=== PATIENT | male | born 1940 | race Asian ===

== ENCOUNTER 2019-08-21 04:20 | Emergency (ER) | payer MEDICARE ==
[~2019-08-21 04:20] MED LIST: AEC81 PO; DIPH1TAB PO; INSREG SQ; INSU100V12 SQ; LEVO250T59 PO; LOSA1TAB42 PO; MIRT15TA6 PO; OXYB10TA4 PO; TAMS0.4C32 PO; TERA5CAP4 PO; ZOLP5TAB8 PO
== END 2019-08-21 05:09 | disposition home or self-care (01) ==
LOC: EDH 04:20
DX: R33.9 Retention of urine, unspecified (principal); I10 Essential (primary) hypertension; E11.9 Type 2 diabetes mellitus without complications; Z87.891 Personal history of nicotine dependence
CPT/HCPCS: 51702

== ENCOUNTER 2019-09-11 09:14 | Emergency (ER) | payer MEDICARE ==
[2019-09-11 09:59] LABS: APPEARANCE,URINE Cloudy (CLEAR); BILIRUBIN,URINE Negative (NEGATIVE); COLOR,URINE Yellow (YELLOW); GLUCOSE, URINE (UA) TRACE mg/dL (NEGATIVE); KETONES,URINE Negative (NEGATIVE); LEUKOCYTE ESTERASE ,URINE Large (NEGATIVE); NITRATE,URINE Positive (NEGATIVE); OCCULT BLOOD,URINE Small (NEGATIVE); PROTEIN,URINE Trace mg/dL (NEGATIVE); UROBILINOGEN,URINE 0.2 mg/dL (0.2-1.0)
[2019-09-11 10:11] LABS: BACTERIA,URINE Few /HPF (None Seen); RBC,URINE 0-1 /HPF (0-1); SQUAMOUS EPITHELIAL CELL,UR 0-2 /HPF (0-2); WBC,URINE >100 /HPF (0-1)
[2019-09-11] MEDS ORDERED: LIDOCAINE HCL-MPF 1% 2ML VIAL ONE (10:11)
[2019-09-11] MEDS ORDERED: CEFTRIAXONE SODIUM 1 GM ONE (10:12)
== END 2019-09-11 10:59 | disposition home or self-care (01) ==
LOC: EDH 09:14
DX: N39.0 Urinary tract infection, site not specified (principal); R33.9 Retention of urine, unspecified; E11.9 Type 2 diabetes mellitus without complications; I10 Essential (primary) hypertension; Z87.891 Personal history of nicotine dependence
CPT/HCPCS: 51702; 81001; 87088; 96372; 99284; J0696; J3490; 87077; 87186

== ENCOUNTER 2019-12-03 08:32 | Emergency (ER) | payer MEDICARE | END 2019-12-03 10:45 | disposition left against medical advice (07) | LOC: EDH 08:32 | DX: R06.00 Dyspnea, unspecified (principal); I10 Essential (primary) hypertension | CPT/HCPCS: 99281 ==

== ENCOUNTER 2020-11-26 20:11 | Inpatient (IN) | payer MEDICARE ==
[~2020-11-26] VITALS: Ht 162.6 cm; Wt 48.0 kg
[~2020-11-26 20:11] MED LIST changes: -AEC81 PO; -DIPH1TAB PO; -LEVO250T59 PO; -LOSA1TAB42 PO; +MEGE400O5 PO; -MIRT15TA6 PO; -OXYB10TA4 PO; +TAMS-1 PO; -TAMS0.4C32 PO; -TERA5CAP4 PO; -ZOLP5TAB8 PO
[2020-11-26 20:58] LABS: APPEARANCE,URINE Clear (CLEAR); BILIRUBIN,URINE Negative (NEGATIVE); COLOR,URINE Yellow (YELLOW); GLUCOSE, URINE (UA) >=1000 mg/dL (NEGATIVE); KETONES,URINE Negative (NEGATIVE); LEUKOCYTE ESTERASE ,URINE Negative (NEGATIVE); NITRATE,URINE Negative (NEGATIVE); OCCULT BLOOD,URINE Small (NEGATIVE); PROTEIN,URINE POS 1+ mg/dL (NEGATIVE)
[2020-11-26 21:10] LABS: BACTERIA,URINE Rare /HPF (None Seen); RBC,URINE 0-1 /HPF (0-1); SQUAMOUS EPITHELIAL CELL,UR Rare /HPF (0-2)
[2020-11-26 21:15] LABS: BASOPHILS % (AUTO) 0.2 % (0.0-5.0); EOSINOPHILS % (AUTO) 0.3 % (0.0-8.0); HEMATOCRIT 26.8 % (42-54); LYMPHOCYTES % (AUTO) 14.5 % (21.0-51.0); MEAN CORPUSCULAR HEMOGLOBIN 30.7 pg (27.0-33.0); MEAN CORPUSCULAR HGB CONC 34.3 g/dL (32.0-36.0); MEAN CORPUSCULAR VOLUME 89.3 fL (79-99); MONOCYTES % (AUTO) 10.9 % (3.0-13.0); NEUTROPHILS % (AUTO) 73.4 % (40.0-77.0); PLATELET COUNT (AUTO) 177 K/uL (130-400); RED CELL DISTRIBUTION WIDTH 14.5 % (11.0-15.5); WHITE BLOOD COUNT (AUTO) 10.4 K/uL (4.8-10.8)
[2020-11-26] MEDS ORDERED: ACETAMINOPHEN 325 MG TAB ONE (21:15)
[2020-11-26 21:30] LABS: CREATININE 1.8 mg/dL (0.5-1.5); POTASSIUM 4.3 mmol/L (3.5-5.1)
[2020-11-26 21:34] LABS: ALBUMIN 3.1 g/dL (3.5-5.0); BILIRUBIN,TOTAL 0.7 mg/dL (0.2-1.0); TOTAL PROTEIN, SERUM 8.8 g/dL (6.0-8.3)
[2020-11-26] MEDS ORDERED: 0.9%NACL 50ML 50 ML IV ONE (22:15)
[2020-11-26] MEDS ORDERED: CEFTRIAXONE 1G VIAL ONE (22:15)
[2020-11-26] MEDS ORDERED: INSULIN HUMULIN R 100 UNIT/ML 3ML ONE (22:41)
[2020-11-26] MEDS ORDERED: GUAIFENESIN-DM 200/20 MG 10 ML PO PRN (23:30)
[2020-11-26] MEDS ORDERED: ACETAMINOPHEN 325 MG TAB PO PRN ×2 (23:30)
[2020-11-26] MEDS ORDERED: MAG/ALUM/SIMETH 30 ML UDCUP PO PRN (23:30)
[2020-11-26] MEDS ORDERED: MORPHINE 2 MG SYG IV PRN (23:30)
[2020-11-26] MEDS ORDERED: ONDANSETRON 4MG INJ IV PRN (23:30)
[2020-11-26] MEDS: CEFTRIAXONE 1G VIAL IV SCH (23:30)
[2020-11-26] MEDS: AZITHROMYCIN 500MG+NS 250ML 250 ML IV SCH (23:30)
[2020-11-26] MEDS ORDERED: 0.9%NACL 1000ML 1,000 ML IV SCH (23:45)
[2020-11-27] MEDS ORDERED: AZITHROMYCIN 500MG+NS 250ML 250 ML IV ONE (00:14)
[2020-11-27 06:12] LABS: BASOPHILS % (AUTO) 0.2 % (0.0-5.0); EOSINOPHILS % (AUTO) 0.5 % (0.0-8.0); HEMATOCRIT 26.3 % (42-54); LYMPHOCYTES % (AUTO) 4.2 % (21.0-51.0); MEAN CORPUSCULAR HGB CONC 33.8 g/dL (32.0-36.0); MEAN CORPUSCULAR VOLUME 88.6 fL (79-99); NEUTROPHILS % (AUTO) 84.4 % (40.0-77.0); PLATELET COUNT (AUTO) 177 K/uL (130-400); RED BLOOD CELL COUNT(AUTO) 2.97 MIL/uL (4.50-6.20); RED CELL DISTRIBUTION WIDTH 14.3 % (11.0-15.5); WHITE BLOOD COUNT (AUTO) 10.5 K/uL (4.8-10.8)
[2020-11-27 06:34] LABS: ALBUMIN 2.7 g/dL (3.5-5.0); BILIRUBIN,TOTAL 0.5 mg/dL (0.2-1.0); CREATININE 1.4 mg/dL (0.5-1.5); POTASSIUM 3.4 mmol/L (3.5-5.1); TOTAL PROTEIN, SERUM 7.9 g/dL (6.0-8.3)
[2020-11-27 06:46] LABS: CRP QUANTITATIVE 163.2 mg/L (0.00-9.0)
[2020-11-27 07:09] LABS: HEMOGLOBIN A1C 11.2 % (4.0-6.0)
[2020-11-27] MEDS ORDERED: FAMOTIDINE 20MG TAB ONE (08:50)
[2020-11-27] MEDS ORDERED: METOPROLOL TARTRATE 25 MG TAB ONE (08:51)
[2020-11-27] MEDS ORDERED: ENOXAPARIN SODIUM 40 MG/0.4 ML SYRINGE SQ ONE (08:51)
[2020-11-27] MEDS: METOPROLOL TARTRATE 25 MG TAB PO SCH ×2 (09:00→20:36)
[2020-11-27] MEDS: ENOXAPARIN SODIUM 40 MG/0.4 ML SYRINGE SQ SCH (09:00)
[2020-11-27] MEDS: FAMOTIDINE 20MG TAB PO SCH (09:00)
[2020-11-27] MEDS: CREON 12000 UNIT PO SCH ×3 (09:00→20:42)
[2020-11-27] MEDS ORDERED: POTASSIUM CHLORIDE 10% ELIXIR 20 MEQ/15 ML UDCUP PO SCH (09:00)
[2020-11-27] MEDS ORDERED: POTASSIUM CHLORIDE 10% ELIXIR 20 MEQ/15 ML UDCUP ONE (09:33)
[2020-11-27] MEDS ORDERED: MAGNESIUM 2GM PREMIX 50ML 50 ML IV NR (10:45)
[2020-11-27] MEDS: INSULIN HUMULIN R 100 UNIT/ML 3ML SQ SCH ×3 (11:30→20:41)
[2020-11-27] MEDS ORDERED: MAGNESIUM 2GM PREMIX 50ML 50 ML IV ONE (12:16)
[2020-11-27 13:37] VITALS: BP 131/71
[2020-11-27] MEDS ORDERED: CREON12 PO (15:35)
[2020-11-27] MEDS ORDERED: INSU100V12 SQ (15:40)
[2020-11-27] MEDS ORDERED: ZOLP5TAB8 PO (15:40)
[2020-11-27] MEDS ORDERED: DONE5TAB33 PO (15:40)
[2020-11-27] MEDS ORDERED: METO25TA6 PO (15:40)
[2020-11-27] MEDS ORDERED: TERA5CAP4 PO (15:40)
[2020-11-27 16:48] VITALS: BP 122/63
[2020-11-27 20:01] VITALS: BP 119/62
[2020-11-27] MEDS: TERAZOSIN 5MG CAP PO SCH (20:35)
[2020-11-27] MEDS: DONEPEZIL HCL 5 MG TAB PO SCH (20:35)
[2020-11-27] MEDS: CEFTRIAXONE 1G VIAL IV SCH (23:09)
[2020-11-27] MEDS: AZITHROMYCIN 500MG+NS 250ML 250 ML IV SCH (23:09)
[2020-11-27] MEDS: ACETAMINOPHEN WITH CODEINE 1 TAB TAB PO PRN (23:19)
[2020-11-27 23:34] VITALS: BP 120/71
[2020-11-28 03:49] VITALS: BP 110/69
[2020-11-28 05:36] LABS: BASOPHILS % (AUTO) 0.3 % (0.0-5.0); EOSINOPHILS % (AUTO) 2.1 % (0.0-8.0); HEMATOCRIT 24.3 % (42-54); LYMPHOCYTES % (AUTO) 13.4 % (21.0-51.0); MEAN CORPUSCULAR HEMOGLOBIN 30.5 pg (27.0-33.0); MEAN CORPUSCULAR HGB CONC 34.2 g/dL (32.0-36.0); MEAN CORPUSCULAR VOLUME 89.3 fL (79-99); MONOCYTES % (AUTO) 10.2 % (3.0-13.0); NEUTROPHILS % (AUTO) 73.4 % (40.0-77.0); PLATELET COUNT (AUTO) 196 K/uL (130-400); RED BLOOD CELL COUNT(AUTO) 2.72 MIL/uL (4.50-6.20); RED CELL DISTRIBUTION WIDTH 14.6 % (11.0-15.5); WHITE BLOOD COUNT (AUTO) 8.6 K/uL (4.8-10.8)
[2020-11-28 05:55] LABS: ALBUMIN 2.4 g/dL (3.5-5.0); BILIRUBIN,TOTAL 0.3 mg/dL (0.2-1.0); CREATININE 1.4 mg/dL (0.5-1.5); CRP QUANTITATIVE 147.2 mg/L (0.00-9.0); MAGNESIUM 2.3 mg/dL (1.80-2.40); TOTAL PROTEIN, SERUM 7.5 g/dL (6.0-8.3)
[2020-11-28] MEDS: INSULIN HUMULIN R 100 UNIT/ML 3ML SQ SCH ×4 (06:03→20:16)
[2020-11-28 07:30] VITALS: BP 128/69
[2020-11-28] MEDS: CREON 12000 UNIT PO SCH ×3 (09:00→20:16)
[2020-11-28] MEDS: METOPROLOL TARTRATE 25 MG TAB PO SCH ×2 (09:06→20:15)
[2020-11-28] MEDS: FAMOTIDINE 20MG TAB PO SCH (09:07)
[2020-11-28] MEDS: ENOXAPARIN SODIUM 40 MG/0.4 ML SYRINGE SQ SCH (09:08)
[2020-11-28 11:00] VITALS: BP 119/66
[2020-11-28] MEDS: ACETAMINOPHEN WITH CODEINE 1 TAB TAB PO PRN (15:32)
[2020-11-28 16:00] VITALS: BP 126/63
[2020-11-28 19:00] VITALS: BP 130/66
[2020-11-28] MEDS: TERAZOSIN 5MG CAP PO SCH (20:15)
[2020-11-28] MEDS: DONEPEZIL HCL 5 MG TAB PO SCH (20:15)
[2020-11-28] MEDS: AZITHROMYCIN 500MG+NS 250ML 250 ML IV SCH (21:58)
[2020-11-28] MEDS: CEFTRIAXONE 1G VIAL IV SCH (21:58)
[2020-11-28] MEDS ORDERED: HYDROXYZINE 25 MG TABLET PO SCH (22:45)
[2020-11-29] VITALS: BP 150/69
[2020-11-29 04:00] VITALS: BP 123/66
[2020-11-29 05:51] LABS: BASOPHILS % (AUTO) 0.8 % (0.0-5.0); EOSINOPHILS % (AUTO) 3.2 % (0.0-8.0); HEMATOCRIT 25.6 % (42-54); LYMPHOCYTES % (AUTO) 19.3 % (21.0-51.0); MEAN CORPUSCULAR HEMOGLOBIN 29.3 pg (27.0-33.0); MEAN CORPUSCULAR HGB CONC 32.8 g/dL (32.0-36.0); MEAN CORPUSCULAR VOLUME 89.2 fL (79-99); MONOCYTES % (AUTO) 10.6 % (3.0-13.0); NEUTROPHILS % (AUTO) 65.5 % (40.0-77.0); PLATELET COUNT (AUTO) 213 K/uL (130-400); RED BLOOD CELL COUNT(AUTO) 2.87 MIL/uL (4.50-6.20); RED CELL DISTRIBUTION WIDTH 14.4 % (11.0-15.5); WHITE BLOOD COUNT (AUTO) 6.5 K/uL (4.8-10.8)
[2020-11-29 06:12] LABS: ALBUMIN 2.4 g/dL (3.5-5.0); BILIRUBIN,TOTAL 0.3 mg/dL (0.2-1.0); CREATININE 1.5 mg/dL (0.5-1.5); TOTAL PROTEIN, SERUM 7.4 g/dL (6.0-8.3)
[2020-11-29] MEDS: INSULIN HUMULIN R 100 UNIT/ML 3ML SQ SCH (06:14)
[2020-11-29] MEDS: FAMOTIDINE 20MG TAB PO SCH (07:52)
[2020-11-29] MEDS: METOPROLOL TARTRATE 25 MG TAB PO SCH (07:53)
[2020-11-29] MEDS: ENOXAPARIN SODIUM 40 MG/0.4 ML SYRINGE SQ SCH (07:53)
[2020-11-29] MEDS: ACETAMINOPHEN WITH CODEINE 1 TAB TAB PO PRN (07:54)
[2020-11-29 08:08] VITALS: BP 111/56
[2020-11-29] MEDS ORDERED: LIPASE/PROTEASE/AMYLASE 5000/17000/24000 PO SCH (09:00)
[2020-11-29] MEDS ORDERED: TAMSULOSIN HCL 0.4 MG CAP.ER.24H PO SCH (09:00)
[2020-11-29] MEDS ORDERED: MEGESTROL 400 MG/10 ML UDCUP PO SCH (09:00)
[2020-11-29] MEDS: CREON 12000 UNIT PO SCH (09:00)
[2020-11-29] MEDS ORDERED: CEFD300C3 PO (11:05)
[2020-11-29] MEDS ORDERED: DONEPEZIL HCL 5 MG TAB PO SCH (21:00)
[2020-11-29] MEDS ORDERED: TERAZOSIN 5MG CAP PO SCH (21:00)
== END 2020-11-29 11:30 | disposition home or self-care (01) | DRG 872 ==
LOC: EDH 20:11 → EDHIP 22:15 → 3AH 11-27 13:33
PROVIDERS: ADMIT Internal Medicine; ATTEND Internal Medicine
DX: A41.50 Gram-negative sepsis, unspecified (principal); E87.1 Hypo-osmolality and hyponatremia; N39.0 Urinary tract infection, site not specified; N17.9 Acute kidney failure, unspecified; K86.1 Other chronic pancreatitis; R91.8 Other nonspecific abnormal finding of lung field; E11.65 Type 2 diabetes mellitus with hyperglycemia; I10 Essential (primary) hypertension; E87.6 Hypokalemia; D64.9 Anemia, unspecified; N40.0 Benign prostatic hyperplasia without lower urinary tract symptoms; Z20.822 Contact with and (suspected) exposure to COVID-19; Z83.3 Family history of diabetes mellitus; Z87.01 Personal history of pneumonia (recurrent); Z87.442 Personal history of urinary calculi; Z87.891 Personal history of nicotine dependence
CPT/HCPCS: 36415; 71045; 71250; 76770; 80053; 81001; 82728; 82948; 83036; 83605; 83615; 83735; 84145; 84484; 85025; 85378; 86140; 86850; 86900; 86901; 87040; 87088; 87426; 93005; 93970; G0378; J0456; J0696; J1650; J1815; J3475; U0003

== ENCOUNTER 2021-07-12 02:38 | Emergency (ER) | payer MEDICARE ==
[~2021-07-12] VITALS: Ht 160 cm; Wt 47.6 kg
[~2021-07-12 02:38] MED LIST changes: +CEFD300C3 PO; +CREON12 PO; +DONE5TAB33 PO; +METO25TA6 PO; +TERA5CAP4 PO; +ZOLP5TAB8 PO
[2021-07-12 03:18] LABS: BASOPHILS % (AUTO) 0.5 % (0.0-5.0); EOSINOPHILS % (AUTO) 4.1 % (0.0-8.0); HEMATOCRIT 30.2 % (42-54); LYMPHOCYTES % (AUTO) 30.2 % (21.0-51.0); MEAN CORPUSCULAR HEMOGLOBIN 31.4 pg (27.0-33.0); MEAN CORPUSCULAR HGB CONC 34.8 g/dL (32.0-36.0); MEAN CORPUSCULAR VOLUME 90.4 fL (79-99); MONOCYTES % (AUTO) 8.3 % (3.0-13.0); NEUTROPHILS % (AUTO) 56.7 % (40.0-77.0); PLATELET COUNT (AUTO) 155 K/uL (130-400); RED BLOOD CELL COUNT(AUTO) 3.34 MIL/uL (4.50-6.20); RED CELL DISTRIBUTION WIDTH 13.4 % (11.0-15.5); WHITE BLOOD COUNT (AUTO) 4.1 K/uL (4.8-10.8)
[2021-07-12 03:23] LABS: CREATININE 1.3 mg/dL (0.5-1.5); POTASSIUM 3.5 mmol/L (3.5-5.1)
[2021-07-12 03:28] LABS: ALBUMIN 3.4 g/dL (3.5-5.0); BILIRUBIN,TOTAL 0.4 mg/dL (0.2-1.0); TOTAL PROTEIN, SERUM 7.6 g/dL (6.0-8.3)
[2021-07-12] MEDS ORDERED: OCTYL 2-CYANOACRYLATE 1 EACH TP SCH (03:30)
[2021-07-12] MEDS ORDERED: TETANUS/DIPHTHERIA TOXOID [ADULT] 0.5 ML VIAL IM ONE ×2 (03:30→05:24)
[2021-07-12 06:38] LABS: INR 1.05 (0.85-1.15); PROTHROMBIN TIME 11.4 SEC (9.6-11.6)
[2021-07-12 06:40] LABS: PARTIAL THROMBOPLASTIN TIME 29.6 SEC (26.3-35.5)
[2021-07-12 07:00] VITALS: BP 140/71
== END 2021-07-12 08:39 | disposition short-term general hospital (02) ==
LOC: EDH 02:38
DX: S01.01XA Laceration without foreign body of scalp, initial encounter (principal); S51.012A Laceration without foreign body of left elbow, initial encounter; Z20.822 Contact with and (suspected) exposure to COVID-19; I10 Essential (primary) hypertension; R42 Dizziness and giddiness; E11.9 Type 2 diabetes mellitus without complications; Z79.4 Long term (current) use of insulin; Z79.899 Other long term (current) drug therapy; W18.39XA Other fall on same level, initial encounter; Y93.89 Activity, other specified; Y92.89 Other specified places as the place of occurrence of the external cause; Y99.8 Other external cause status
CPT/HCPCS: 12001; 36415; 70450; 71045; 72125; 80053; 82550; 84484; 85025; 85610; 85730; 87635; 90471; 90714; 93005; 99285; C9803

== ENCOUNTER 2021-11-30 18:01 | Inpatient (IN) | payer OTHER, MEDICARE ==
[~2021-11-30] VITALS: Ht 160 cm; Wt 72.6 kg
[2021-11-30 18:25] LABS: BASOPHILS % (AUTO) 0.2 % (0.0-5.0); EOSINOPHILS % (AUTO) 0.8 % (0.0-8.0); HEMATOCRIT 30.4 % (42-54); LYMPHOCYTES % (AUTO) 4.2 % (21.0-51.0); MEAN CORPUSCULAR HEMOGLOBIN 31.2 pg (27.0-33.0); MEAN CORPUSCULAR HGB CONC 35.5 g/dL (32.0-36.0); MEAN CORPUSCULAR VOLUME 87.9 fL (79-99); MONOCYTES % (AUTO) 5.2 % (3.0-13.0); NEUTROPHILS % (AUTO) 89.1 % (40.0-77.0); PLATELET COUNT (AUTO) 147 K/uL (130-400); RED BLOOD CELL COUNT(AUTO) 3.46 MIL/uL (4.50-6.20); WHITE BLOOD COUNT (AUTO) 6.6 K/uL (4.8-10.8)
[2021-11-30 18:28] LABS: APPEARANCE,URINE Clear (CLEAR); BILIRUBIN,URINE Negative (NEGATIVE); COLOR,URINE Dark Yellow (YELLOW); GLUCOSE, URINE (UA) 500 mg/dL (NEGATIVE); KETONES,URINE Negative (NEGATIVE); LEUKOCYTE ESTERASE ,URINE Negative (NEGATIVE); NITRATE,URINE Negative (NEGATIVE); OCCULT BLOOD,URINE Negative (NEGATIVE); PH,URINE 6.5 (5.0-8.0); PROTEIN,URINE Trace mg/dL (NEGATIVE)
[2021-11-30] MEDS ORDERED: LACTATED RINGERS 1000ML 1,000 ML IV ONE (18:30)
[2021-11-30] MEDS ORDERED: ACETAMINOPHEN 325 MG TAB PO ONE (18:30)
[2021-11-30] MEDS ORDERED: ONDANSETRON 4MG INJ IVP ONE (18:30)
[2021-11-30] MEDS ORDERED: CEFTRIAXONE 1G VIAL IVP ONE (18:30)
[2021-11-30 18:38] LABS: BACTERIA,URINE Rare /HPF (None Seen); RBC,URINE 0-1 /HPF (0-1); SQUAMOUS EPITHELIAL CELL,UR None Seen /HPF (0-2); URIC ACID CRYSTALS,URINE Few /LPF (None Seen); WBC,URINE 0-1 /HPF (0-1)
[2021-11-30 18:40] LABS: CARBON DIOXIDE 27 mmol/L (21-32); CHLORIDE 97 mmol/L (101-111); CREATININE 1.2 mg/dL (0.5-1.5); GLOMERULAR FILTR. RATE CALC 62 mL/min (>60); GLUCOSE,RANDOM 183 mg/dL (70-105); SODIUM SERUM 131 mmol/L (136-145); UREA NITROGEN, BLOOD 13 mg/dL (7-18)
[2021-11-30 18:49] LABS: ALANINE AMINOTRANSFERASE 251 U/L (12-78); ALBUMIN 3.1 g/dL (3.5-5.0); BILIRUBIN,TOTAL 2.6 mg/dL (0.2-1.0); TOTAL PROTEIN, SERUM 7.7 g/dL (6.0-8.3)
[2021-11-30 18:50] LABS: LIPASE < 10 U/L (114-286)
[2021-11-30 18:52] LABS: ASPARTATE AMINOTRANSFERASE 811 U/L (10-37)
[2021-11-30] MEDS ORDERED: ZOSYN 3.375GM +NS 50ML IV SCH (19:00)
[2021-11-30] MEDS ORDERED: ACETAMINOPHEN 500 MG TABLET ONE (19:15)
[2021-11-30] MEDS ORDERED: 0.9%NACL 50ML 50 ML IV ONE (19:16)
[2021-11-30] MEDS ORDERED: MORPHINE 2 MG SYG IV PRN (20:00)
[2021-11-30] MEDS ORDERED: LACTATED RINGERS 1000ML 1,707 ML IV ONE (20:00)
[2021-11-30] MEDS ORDERED: ONDANSETRON 4MG INJ IV PRN (20:00)
[2021-11-30] MEDS ORDERED: HYDROMORPHONE 0.5 MG SYG (0.5MG/0.5ML) IV PRN (20:00)
[2021-11-30] MEDS: ZOSYN 3.375GM+NS 50ML 50 ML IV SCH (21:00)
[2021-11-30] MEDS: LACTATED RINGERS 1000ML 1,000 ML IV SCH (21:34)
[2021-11-30 23:24] VITALS: BP 101/58
[2021-11-30] MEDS ORDERED: GABA-529 PO (23:43)
[2021-11-30] MEDS ORDERED: OXYB5TAB15 PO (23:43)
[2021-11-30] MEDS ORDERED: ERGO500093 PO (23:43)
[2021-12-01] VITALS (30 sets, daily range): BP systolic 93–135; BP diastolic 48–69
[2021-12-01 04:18] LABS: BASOPHILS % (AUTO) 0.2 % (0.0-5.0); EOSINOPHILS % (AUTO) 2.5 % (0.0-8.0); HEMATOCRIT 25.5 % (42-54); MEAN CORPUSCULAR HEMOGLOBIN 30.1 pg (27.0-33.0); MEAN CORPUSCULAR HGB CONC 34.5 g/dL (32.0-36.0); MEAN CORPUSCULAR VOLUME 87.3 fL (79-99); NEUTROPHILS % (AUTO) 77.7 % (40.0-77.0); PLATELET COUNT (AUTO) 149 K/uL (130-400); RED BLOOD CELL COUNT(AUTO) 2.92 MIL/uL (4.50-6.20)
[2021-12-01 04:36] LABS: INR 1.14 (0.85-1.15); MAGNESIUM 1.2 mg/dL (1.80-2.40); PHOSPHORUS 3.7 mg/dL (2.5-4.9); POTASSIUM 4.4 mmol/L (3.5-5.1); PROTHROMBIN TIME 12.3 SEC (9.6-11.6)
[2021-12-01 04:37] LABS: PARTIAL THROMBOPLASTIN TIME 30.5 SEC (26.3-35.5)
[2021-12-01] MEDS: ZOSYN 3.375GM+NS 50ML 50 ML IV SCH ×3 (04:37→20:09)
[2021-12-01] MEDS ORDERED: METOPROLOL TARTRATE 25 MG TAB ONE (05:02)
[2021-12-01] MEDS: METOPROLOL TARTRATE 25 MG TAB PO SCH ×2 (05:03→20:10)
[2021-12-01] MEDS ORDERED: MAGNESIUM 2GM PREMIX 50ML 50 ML IV ONE (05:30)
[2021-12-01] MEDS: LACTATED RINGERS 1000ML 1,000 ML IV SCH ×3 (05:31→23:48)
[2021-12-01] MEDS: GABAPENTIN 100 MG CAPSULE PO SCH ×2 (09:00→20:11)
[2021-12-01] MEDS: OXYBUTYNIN CHLORIDE 5 MG TABLET PO SCH ×2 (09:00→20:10)
[2021-12-01] MEDS: LIPASE/PROTEASE/AMYLASE 5000/17000/24000 PO SCH ×3 (09:00→20:10)
[2021-12-01] MEDS ORDERED: IOHEXOL-350 50ML VIAL IV ONE (09:26)
[2021-12-01] MEDS: FAMOTIDINE 20MG VIAL IV SCH (09:47)
[2021-12-01] MEDS ORDERED: MAGNESIUM 2GM PREMIX 50ML 50 ML IV PRN (10:30)
[2021-12-01] MEDS ORDERED: MORPHINE 2 MG SYG IV PRN (10:30)
[2021-12-01 10:51] LABS: ALBUMIN 2.4 g/dL (3.5-5.0); BILIRUBIN,DIRECT 1.6 mg/dL (0.0-0.3); BILIRUBIN,TOTAL 2.2 mg/dL (0.2-1.0); MAGNESIUM 1.3 mg/dL (1.80-2.40); TOTAL PROTEIN, SERUM 5.8 g/dL (6.0-8.3)
[2021-12-01] MEDS ORDERED: SUCCINYLCHOLINE CHLORIDE 20 MG/ML 10 ML VIAL ONE (11:12)
[2021-12-01] MEDS ORDERED: PROPOFOL 10 MG/ML 20ML VIAL IV ONE (11:13)
[2021-12-01] MEDS ORDERED: LIDOCAINE HCL 1% MDV 50ML VIAL ONE (14:21)
[2021-12-01] MEDS ORDERED: DiphenhydrAMINE HCL 50 MG/ML VIAL ONE (15:50)
[2021-12-01] MEDS ORDERED: DiphenhydrAMINE HCL 50 MG/ML VIAL IV ONE (16:00)
[2021-12-01] MEDS ORDERED: ACETAMINOPHEN 500 MG TABLET PO PRN (17:30)
[2021-12-01] MEDS: ACETAMINOPHEN 325 MG TAB PO PRN (17:33)
[2021-12-01] MEDS ORDERED: ACETAMINOPHEN WITH CODEINE 1 TAB TAB ONE (18:27)
[2021-12-01] MEDS: TERAZOSIN 5MG CAP PO SCH (20:10)
[2021-12-01] MEDS: DONEPEZIL HCL 5 MG TAB PO SCH (20:10)
[2021-12-01] MEDS ORDERED: ZOLPIDEM TARTRATE 5 MG TAB PO SCH (21:00)
[2021-12-02 03:52] VITALS: BP 92/46
[2021-12-02 04:09] LABS: MEAN CORPUSCULAR HEMOGLOBIN 29.9 pg (27.0-33.0); MEAN CORPUSCULAR HGB CONC 33.2 g/dL (32.0-36.0); MEAN CORPUSCULAR VOLUME 89.9 fL (79-99); RED BLOOD CELL COUNT(AUTO) 2.78 MIL/uL (4.50-6.20); RED CELL DISTRIBUTION WIDTH 14.4 % (11.0-15.5); WHITE BLOOD COUNT (AUTO) 5.7 K/uL (4.8-10.8)
[2021-12-02 04:22] LABS: CREATININE 1.3 mg/dL (0.5-1.5); MAGNESIUM 2.2 mg/dL (1.80-2.40); POTASSIUM 4.3 mmol/L (3.5-5.1)
[2021-12-02] MEDS: ZOSYN 3.375GM+NS 50ML 50 ML IV SCH ×3 (04:23→21:15)
[2021-12-02 07:09] LABS: ALANINE AMINOTRANSFERASE 136 U/L (12-78); ALBUMIN 2.1 g/dL (3.5-5.0); ASPARTATE AMINOTRANSFERASE 114 U/L (10-37); BILIRUBIN,DIRECT 0.7 mg/dL (0.0-0.3); BILIRUBIN,TOTAL 1.4 mg/dL (0.2-1.0); TOTAL PROTEIN, SERUM 5.7 g/dL (6.0-8.3)
[2021-12-02 07:11] LABS: LIPASE < 10 U/L (114-286)
[2021-12-02 07:20] VITALS: BP 91/53
[2021-12-02] MEDS: LIPASE/PROTEASE/AMYLASE 5000/17000/24000 PO SCH ×3 (08:36→21:03)
[2021-12-02] MEDS: GABAPENTIN 100 MG CAPSULE PO SCH ×2 (08:36→21:04)
[2021-12-02] MEDS: OXYBUTYNIN CHLORIDE 5 MG TABLET PO SCH ×2 (08:36→21:03)
[2021-12-02] MEDS: METOPROLOL TARTRATE 25 MG TAB PO SCH (08:36)
[2021-12-02] MEDS: FAMOTIDINE 20MG VIAL IV SCH (08:36)
[2021-12-02 11:05] VITALS: BP 94/51
[2021-12-02 15:20] VITALS: BP 109/56
[2021-12-02 19:41] VITALS: BP 113/60
[2021-12-02] MEDS: TERAZOSIN 5MG CAP PO SCH (21:03)
[2021-12-02] MEDS: ACETAMINOPHEN WITH CODEINE 1 TAB TAB PO PRN (21:03)
[2021-12-02] MEDS: DONEPEZIL HCL 5 MG TAB PO SCH (21:03)
[2021-12-02] MEDS: INSULIN HUMULIN R 100 UNIT/ML 3ML SQ SCH (21:19)
[2021-12-02 23:36] VITALS: BP 97/52
[2021-12-03 04:01] VITALS: BP 138/67
[2021-12-03 05:32] LABS: EOSINOPHILS % (AUTO) 1.7 % (0.0-8.0); LYMPHOCYTES % (AUTO) 9.6 % (21.0-51.0); MEAN CORPUSCULAR HEMOGLOBIN 30.2 pg (27.0-33.0); MEAN CORPUSCULAR HGB CONC 33.6 g/dL (32.0-36.0); MEAN CORPUSCULAR VOLUME 89.9 fL (79-99); MONOCYTES % (AUTO) 6.2 % (3.0-13.0); NEUTROPHILS % (AUTO) 81.8 % (40.0-77.0); PLATELET COUNT (AUTO) 118 K/uL (130-400); RED BLOOD CELL COUNT(AUTO) 2.78 MIL/uL (4.50-6.20); RED CELL DISTRIBUTION WIDTH 14.5 % (11.0-15.5)
[2021-12-03] MEDS: ZOSYN 3.375GM+NS 50ML 50 ML IV SCH ×3 (05:33→21:47)
[2021-12-03] MEDS: INSULIN HUMULIN R 100 UNIT/ML 3ML SQ SCH ×4 (05:34→21:00)
[2021-12-03 06:07] LABS: ALBUMIN 2.3 g/dL (3.5-5.0); BILIRUBIN,TOTAL 0.9 mg/dL (0.2-1.0); CREATININE 1.1 mg/dL (0.5-1.5); POTASSIUM 3.4 mmol/L (3.5-5.1); TOTAL PROTEIN, SERUM 6.4 g/dL (6.0-8.3)
[2021-12-03 08:00] VITALS: BP 102/61
[2021-12-03] MEDS: GABAPENTIN 100 MG CAPSULE PO SCH ×2 (09:52→21:47)
[2021-12-03] MEDS: FAMOTIDINE 20MG VIAL IV SCH (09:52)
[2021-12-03] MEDS: LIPASE/PROTEASE/AMYLASE 5000/17000/24000 PO SCH ×3 (09:52→21:47)
[2021-12-03] MEDS: OXYBUTYNIN CHLORIDE 5 MG TABLET PO SCH ×2 (09:52→21:47)
[2021-12-03] MEDS: ACETAMINOPHEN WITH CODEINE 1 TAB TAB PO PRN (10:05)
[2021-12-03 12:00] VITALS: BP 124/63
[2021-12-03 16:00] VITALS: BP 124/69
[2021-12-03] MEDS: ACETAMINOPHEN 325 MG TAB PO PRN (17:07)
[2021-12-03 20:07] VITALS: BP 110/68
[2021-12-03] MEDS: DONEPEZIL HCL 5 MG TAB PO SCH (21:47)
[2021-12-03] MEDS: TERAZOSIN 5MG CAP PO SCH (21:47)
[2021-12-04 00:03] VITALS: BP 124/67
[2021-12-04 05:01] VITALS: BP 114/61
[2021-12-04 05:21] LABS: HEMATOCRIT 24.1 % (42-54); MEAN CORPUSCULAR HEMOGLOBIN 30.2 pg (27.0-33.0); MEAN CORPUSCULAR HGB CONC 32.8 g/dL (32.0-36.0); RED BLOOD CELL COUNT(AUTO) 2.62 MIL/uL (4.50-6.20); RED CELL DISTRIBUTION WIDTH 14.3 % (11.0-15.5); WHITE BLOOD COUNT (AUTO) 4.6 K/uL (4.8-10.8)
[2021-12-04] MEDS: INSULIN HUMULIN R 100 UNIT/ML 3ML SQ SCH (05:40)
[2021-12-04] MEDS: ZOSYN 3.375GM+NS 50ML 50 ML IV SCH (05:47)
[2021-12-04 05:59] LABS: ALBUMIN 2.2 g/dL (3.5-5.0); BILIRUBIN,DIRECT 0.3 mg/dL (0.0-0.3); BILIRUBIN,TOTAL 0.8 mg/dL (0.2-1.0); CREATININE 1.3 mg/dL (0.5-1.5); POTASSIUM 3.5 mmol/L (3.5-5.1); TOTAL PROTEIN, SERUM 6.3 g/dL (6.0-8.3)
[2021-12-04] MEDS: LIPASE/PROTEASE/AMYLASE 5000/17000/24000 PO SCH (08:16)
[2021-12-04] MEDS: FAMOTIDINE 20MG VIAL IV SCH (08:16)
[2021-12-04] MEDS: GABAPENTIN 100 MG CAPSULE PO SCH (08:17)
[2021-12-04] MEDS: OXYBUTYNIN CHLORIDE 5 MG TABLET PO SCH (08:17)
[2021-12-04] MEDS ORDERED: LEVO500T90 PO (08:29)
[2021-12-04 08:59] VITALS: BP 114/59
== END 2021-12-04 10:26 | disposition home or self-care (01) | DRG 871 ==
LOC: EDH 18:01 → EDHIP 19:47 → 4BH 23:04
PROVIDERS: ADMIT Internal Medicine; ATTEND Internal Medicine
PROC: 0F798ZZ Dilation of Common Bile Duct, Via Natural or Artificial Opening Endoscopic (ICD-10-PCS; principal; 2021-12-01)
PROC: 0F9430Z Drainage of Gallbladder with Drainage Device, Percutaneous Approach (ICD-10-PCS; 2021-12-01)
DX: A41.50 Gram-negative sepsis, unspecified (principal); J18.9 Pneumonia, unspecified organism; K80.42 Calculus of bile duct with acute cholecystitis without obstruction; T85.590A Other mechanical complication of bile duct prosthesis, initial encounter; N17.9 Acute kidney failure, unspecified; K82.1 Hydrops of gallbladder; E11.65 Type 2 diabetes mellitus with hyperglycemia; I72.3 Aneurysm of iliac artery; I10 Essential (primary) hypertension; Z20.822 Contact with and (suspected) exposure to COVID-19; E78.00 Pure hypercholesterolemia, unspecified; R74.01 Elevation of levels of liver transaminase levels; F03.90 Unspecified dementia, unspecified severity, without behavioral disturbance, psychotic disturbance, mood disturbance, and anxiety; Z83.3 Family history of diabetes mellitus; D64.9 Anemia, unspecified; E88.09 Other disorders of plasma-protein metabolism, not elsewhere classified; J44.9 Chronic obstructive pulmonary disease, unspecified; Y83.8 Other surgical procedures as the cause of abnormal reaction of the patient, or of later complication, without mention of misadventure at the time of the procedure; Y92.89 Other specified places as the place of occurrence of the external cause
CPT/HCPCS: 10030; 36415; 43262; 43264; 47490; 71045; 74176; 74330; 76705; 80048; 80053; 80076; 81001; 82948; 83036; 83605; 83690; 83735; 84100; 84145; 84484; 85025; 85027; 85610; 85730; 86850; 86900; 86901; 87040; 87070; 87077; 87186; 87635; 93005; 97039; A4606; C1769; C1773; C1894; G0378; J0330; J0696; J1200; J1644; J2405; J2543; J2704; J3475; J3490; J7120; Q9967

== ENCOUNTER 2023-04-07 16:52 | Inpatient (IN) | payer OTHER, MEDICARE ==
[~2023-04-07] VITALS: Ht 160 cm; Wt 47.7 kg
[~2023-04-07 16:52] MED LIST changes: -CEFD300C3 PO; +ERGO500093 PO; +GABA-529 PO; -INSREG SQ; +LEVO-70 PO; -MEGE400O5 PO; +OXYB5TAB15 PO
[2023-04-07 17:43] LABS: BASOPHILS # (AUTO) 0.01 K/uL (0.00-0.20); BASOPHILS % (AUTO) 0.1 % (0.0-5.0); EOSINOPHILS # (AUTO) 0.06 K/uL (0.00-0.70); EOSINOPHILS % (AUTO) 0.9 % (0.0-8.0); HEMATOCRIT 34.8 % (42-54); IMMATURE GRANULOCYTE ABSOLUTE 0.06 K/uL (0-1); LYMPHOCYTES # (AUTO) 1.4 K/uL (1.0-4.8); LYMPHOCYTES % (AUTO) 20.5 % (21.0-51.0); MEAN CORPUSCULAR HEMOGLOBIN 31.4 pg (27.0-33.0); MEAN CORPUSCULAR HGB CONC 36.5 g/dL (32.0-36.0); MEAN CORPUSCULAR VOLUME 85.9 fL (79-99); MONOCYTES # (AUTO) 0.6 K/uL (0.1-1.0); MONOCYTES % (AUTO) 8.7 % (3.0-13.0); NEUTROPHILS # (AUTO) 4.8 K/uL (1.8-7.7); NEUTROPHILS % (AUTO) 68.9 % (40.0-77.0); PLATELET COUNT (AUTO) 186 K/uL (130-400); RED BLOOD CELL COUNT(AUTO) 4.05 MIL/uL (4.50-6.20); RED CELL DISTRIBUTION WIDTH 13.4 % (11.0-15.5); WHITE BLOOD COUNT (AUTO) 6.9 K/uL (4.8-10.8)
[2023-04-07 17:55] LABS: INR 1.02 (0.85-1.15); PROTHROMBIN TIME 11.8 SEC (9.6-11.6)
[2023-04-07 18:05] LABS: AMMONIA < 10 umol/L (11-32)
[2023-04-07 18:11] LABS: ALBUMIN 3.3 g/dL (3.5-5.0); BILIRUBIN,TOTAL 0.8 mg/dL (0.2-1.0); CREATININE 2.1 mg/dL (0.5-1.5); POTASSIUM 3.9 mmol/L (3.5-5.1); TOTAL PROTEIN, SERUM 8.4 g/dL (6.0-8.3)
[2023-04-07 18:12] LABS: ADD UA MICROSCOPIC YES; APPEARANCE,URINE CLEAR (CLEAR); BILIRUBIN,URINE NEGATIVE (NEGATIVE); COLOR,URINE COLORLESS (YELLOW); GLUCOSE, URINE (UA) >=1000 mg/dL (NEGATIVE); KETONES,URINE NEGATIVE (NEGATIVE); LEUKOCYTE ESTERASE ,URINE NEGATIVE Leu/uL (NEGATIVE); NITRATE,URINE NEGATIVE (NEGATIVE); OCCULT BLOOD,URINE NEGATIVE (NEGATIVE); PROTEIN,URINE NEGATIVE (NEGATIVE); UROBILINOGEN,URINE 0.2 mg/dL (0.2-1.0)
[2023-04-07 18:26] LABS: MUCUS,URINE RARE LPF (None Seen)
[2023-04-07] MEDS ORDERED: 0.9%NACL 1000ML 1,137 ML IV ONE (19:00)
[2023-04-07 19:25] LABS: ABG BASE EXCESS -3.6 mmol/L (-2.0-3.0); ABG HCO3 19.6 mmol/L (21.0-28.0); ABG OXYGEN SATURATION 97.4 % (95.0-99.0); ABG PCO2 30 mmHg (35-48); ABG PH 7.428 (7.35-7.450); CARBON MONOXIDE 0.7; HHb 2.6; PO2, ARTERIAL BG 96.3 mmHg (83.0-108.0); VENT MODE, BG ROOM AIR (ROOM AIR)
[2023-04-07 19:33] LABS: BASOPHILS # (AUTO) 0.02 K/uL (0.00-0.20); BASOPHILS % (AUTO) 0.3 % (0.0-5.0); EOSINOPHILS # (AUTO) 0.06 K/uL (0.00-0.70); EOSINOPHILS % (AUTO) 0.8 % (0.0-8.0); HEMATOCRIT 34.5 % (42-54); IMMATURE GRANULOCYTE ABSOLUTE 0.04 K/uL (0-1); LYMPHOCYTES # (AUTO) 1.6 K/uL (1.0-4.8); LYMPHOCYTES % (AUTO) 22.5 % (21.0-51.0); MEAN CORPUSCULAR HEMOGLOBIN 31.5 pg (27.0-33.0); MEAN CORPUSCULAR HGB CONC 36.8 g/dL (32.0-36.0); MEAN CORPUSCULAR VOLUME 85.6 fL (79-99); MONOCYTES # (AUTO) 0.6 K/uL (0.1-1.0); MONOCYTES % (AUTO) 7.9 % (3.0-13.0); NEUTROPHILS # (AUTO) 4.9 K/uL (1.8-7.7); NEUTROPHILS % (AUTO) 67.9 % (40.0-77.0); PLATELET COUNT (AUTO) 185 K/uL (130-400); RED BLOOD CELL COUNT(AUTO) 4.03 MIL/uL (4.50-6.20); RED CELL DISTRIBUTION WIDTH 13.3 % (11.0-15.5); WHITE BLOOD COUNT (AUTO) 7.2 K/uL (4.8-10.8)
[2023-04-07] MEDS ORDERED: INSULIN HUMULIN R 100 UNIT/ML 3ML ONE (19:51)
[2023-04-07 19:53] LABS: ALBUMIN 3.5 g/dL (3.5-5.0); BILIRUBIN,TOTAL 0.8 mg/dL (0.2-1.0); POTASSIUM 3.8 mmol/L (3.5-5.1); TOTAL PROTEIN, SERUM 9.3 g/dL (6.0-8.3)
[2023-04-07] MEDS ORDERED: INSULIN REGULAR, HUMAN 3ML 100 UNIT in 0.9%NACL 100ML 99 ML IV SCH ×2 (20:00)
[2023-04-07] MEDS ORDERED: POTASSIUM CHLORIDE 10MEQ/100ML 100 ML IV ONE (20:12)
[2023-04-07] MEDS ORDERED: MAGNESIUM 2GM PREMIX 50ML 50 ML IV SCH (20:30)
[2023-04-07] MEDS ORDERED: POTASSIUM CHLORIDE 10MEQ/100ML 10 MEQ/100 ML ML IV SCH (20:30)
[2023-04-07] MEDS ORDERED: ACETAMINOPHEN 325 MG TAB PO PRN ×2 (22:00)
[2023-04-07] MEDS ORDERED: POTASSIUM CHLORIDE 10MEQ/100ML 100 ML IV PRN (22:00)
[2023-04-07] MEDS ORDERED: MAGNESIUM 2GM PREMIX 50ML 50 ML IV PRN (22:00)
[2023-04-07] MEDS ORDERED: ONDANSETRON 4MG INJ IV PRN (22:00)
[2023-04-07] MEDS: 0.9%NACL 1000ML 1,000 ML IV SCH (23:17)
[2023-04-07 23:31] LABS: CREATININE 1.5 mg/dL (0.5-1.5); MAGNESIUM 2.5 mg/dL (1.80-2.40); POTASSIUM 3.8 mmol/L (3.5-5.1)
[2023-04-08 02:05] VITALS: BP 144/87; PULSE 62; RESP 16
[2023-04-08 02:15] LABS: SARS-CoV-2, RNA, NAAT NEGATIVE SARS CoV-2 (NEGATIVE)
[2023-04-08 05:41] LABS: BASOPHILS # (AUTO) 0.02 K/uL (0.00-0.20); BASOPHILS % (AUTO) 0.3 % (0.0-5.0); EOSINOPHILS # (AUTO) 0.11 K/uL (0.00-0.70); EOSINOPHILS % (AUTO) 1.8 % (0.0-8.0); HEMATOCRIT 30.7 % (42-54); IMMATURE GRANULOCYTE ABSOLUTE 0.03 K/uL (0-1); LYMPHOCYTES # (AUTO) 1.5 K/uL (1.0-4.8); LYMPHOCYTES % (AUTO) 23.5 % (21.0-51.0); MEAN CORPUSCULAR HEMOGLOBIN 31.4 pg (27.0-33.0); MEAN CORPUSCULAR HGB CONC 35.8 g/dL (32.0-36.0); MEAN CORPUSCULAR VOLUME 87.7 fL (79-99); MONOCYTES # (AUTO) 0.6 K/uL (0.1-1.0); MONOCYTES % (AUTO) 9.3 % (3.0-13.0); NEUTROPHILS % (AUTO) 64.6 % (40.0-77.0); PLATELET COUNT (AUTO) 180 K/uL (130-400); RED CELL DISTRIBUTION WIDTH 13.8 % (11.0-15.5); WHITE BLOOD COUNT (AUTO) 6.2 K/uL (4.8-10.8)
[2023-04-08 05:54] LABS: HEMOGLOBIN A1C 13.1 % (4.0-6.0)
[2023-04-08 05:56] LABS: CREATININE 1.3 mg/dL (0.5-1.5); PHOSPHORUS 3.6 mg/dL (2.5-4.9); POTASSIUM 3.4 mmol/L (3.5-5.1)
[2023-04-08] MEDS: INSULIN HUMULIN R 100 UNIT/ML 3ML SQ SCH ×4 (06:15→20:32)
[2023-04-08 07:45] VITALS: O2SAT 95
[2023-04-08 07:59] VITALS: BP 146/75; PULSE 62; RESP 18
[2023-04-08] MEDS: PANTOPRAZOLE 40 MG TAB DR PO SCH (08:40)
[2023-04-08] MEDS: HEPARIN 5,000 UNIT VIAL SQ SCH ×2 (08:43→20:37)
[2023-04-08] MEDS: AMLODIPINE 5 MG TAB PO SCH (08:45)
[2023-04-08 12:00] VITALS: BP 113/60; PULSE 67; RESP 16
[2023-04-08 16:10] VITALS: BP 104/46; PULSE 69; RESP 17
[2023-04-08] MEDS: 0.9%NACL 1000ML 1,000 ML IV SCH (19:16)
[2023-04-08 20:00] VITALS: BP_SYST 125; BP_SYST 128; BP_DIAS 55; BP_DIAS 89; PULSE 61; PULSE 85; RESP 19; RESP 20; O2SAT 98
[2023-04-09] VITALS: BP 119/58; PULSE 52; RESP 16
[2023-04-09] MEDS: 0.9%NACL 1000ML 1,000 ML IV SCH (00:28)
[2023-04-09 04:00] VITALS: BP 135/60; PULSE 63; RESP 16
[2023-04-09] MEDS: INSULIN HUMULIN R 100 UNIT/ML 3ML SQ SCH (05:26)
[2023-04-09 07:00] VITALS: BP 146/80; PULSE 69; RESP 16
[2023-04-09 08:00] VITALS: O2SAT 98
[2023-04-09] MEDS: PANTOPRAZOLE 40 MG TAB DR PO SCH (08:29)
[2023-04-09] MEDS: AMLODIPINE 5 MG TAB PO SCH (08:29)
[2023-04-09] MEDS: HEPARIN 5,000 UNIT VIAL SQ SCH (08:43)
[2023-04-09] MEDS ORDERED: INSU100V12 SQ (09:59)
== END 2023-04-09 11:25 | disposition home or self-care (01) | DRG 639 ==
LOC: EDH 16:52 → EDHIP 21:50 → 4AH 04-08 02:28
PROVIDERS: ADMIT Internal Medicine; ATTEND Internal Medicine
DX: E11.00 Type 2 diabetes mellitus with hyperosmolarity without nonketotic hyperglycemic-hyperosmolar coma (NKHHC) (principal); D50.0 Iron deficiency anemia secondary to blood loss (chronic); E11.22 Type 2 diabetes mellitus with diabetic chronic kidney disease; F03.90 Unspecified dementia, unspecified severity, without behavioral disturbance, psychotic disturbance, mood disturbance, and anxiety; G31.9 Degenerative disease of nervous system, unspecified; I12.9 Hypertensive chronic kidney disease with stage 1 through stage 4 chronic kidney disease, or unspecified chronic kidney disease; J44.9 Chronic obstructive pulmonary disease, unspecified; Z20.822 Contact with and (suspected) exposure to COVID-19; N18.9 Chronic kidney disease, unspecified; D64.9 Anemia, unspecified; Z79.4 Long term (current) use of insulin; Z51.5 Encounter for palliative care
CPT/HCPCS: 36415; 36600; 70450; 71045; 80048; 80053; 81001; 82010; 82140; 82435; 82803; 82947; 82948; 83036; 83605; 83690; 83735; 83930; 84100; 84132; 84295; 84484; 85018; 85025; 85610; 87040; 87635; 92610; 93005; G0378; J1644; J1815; J3475; J3480

== ENCOUNTER 2025-01-06 19:16 | Observation (INO) | payer OTHER, MEDICARE ==
[~2025-01-06] VITALS: Ht 157.5 cm; Wt 49.0 kg
[~2025-01-06 19:16] MED LIST changes: +DOXY100C5 PO; -GABA-529 PO; +INSU100I24 SQ; -INSU100V12 SQ; -LEVO-70 PO; -METO25TA6 PO; -OXYB5TAB15 PO; -TAMS-1 PO; +TAMS-55 PO; -ZOLP5TAB8 PO
--- NOTE | 2025-01-06 20:10 | ERN ---
General Chief Complaint: Syncope Stated Complaint: UNRESPONSIVE Time Seen by MD: 19:43 Source: family History of Present Illness Initial Comments The patient is a 84-year-old male patient with a medical history that includes type 1 diabetes mellitus, benign prostatic hyperplasia, and autoimmune pancreatitis presented to the emergency department following a syncopal episode earlier today. Patient is an 84-year-old male who was at home when he suddenly sat down and then slumped over and was nonresponsive. EMS was called they noted that his pupils were pinpoint and gave him 2 doses of Narcan and he perked right up. Patient was also given a L of fluid on the way to the hospital and he is currently awake and alert, still with pinpoint pupils. Patient was admitted to the hospital in September of this year with the exact same complaints and the workup was negative. Patient's past medical history does include an ammonia and hip arthroplasty and a cholecystostomy tube. His only known medication is Ambien right now. The patient does not speak Wolof and I am in the process of trying to sort out patient's past medical history and also what medication she could have taken today through the family. Son is at the bedside calling family members. Son tells me the patient has a been admitted a couple times to this hospital before and one time he had fluid in his lungs/pneumonia". Timing/Duration: 1-3 hours Allergies: Coded Allergies: No Known Drug Allergies (Verified Allergy, Unknown, 09/20/23) methylprednisolone (Verified Allergy, Unknown, 09/20/23) Home Meds Active Scripts Doxycycline Hyclate (Doxycycline Hyclate) 100 Mg Capsule, 100 MG PO BID for 7 Days, #14 CAP Prov:ANGELIQUE GUZMAN 03/25/24 Reported Medications Insulin Degludec (Tresiba Flextouch U-100) 100 Unit/Ml (3 Ml) Insuln.pen, 100 UNIT SQ HS, SYRINGE 09/20/23 Ergocalciferol (Vitamin D2) (Vitamin D2) 1,250 Mcg Capsule, 1250 MCG PO QWEEK, CAP 11/30/21 Terazosin HCl (Terazosin HCl) 5 Mg Capsule, 5 MG PO HS, CAP 11/27/20 Donepezil HCl (Donepezil HCl) 5 Mg Tablet, 5 MG PO HS, TAB 11/27/20 Amylase/Lipase/Protease (Creon 12,000) 1 Cap Drcap, 1 CAP PO TID, CAP 11/27/20 Tamsulosin HCl (Flomax) 0.4 Mg Cap.er.24h, 0.4 MG PO DAILY, CAPSULE. 05/05/20 Past Medical History Past Medical History: COPD, Dementia, Diabetes-Type II, Gallstones, Prostatitis, Renal Disese, Other Medical History Other: ALZHIEMERS Past Surgical History: Other Surgical History Other: CERVICAL SPINE, LEFT HIP Family History Family History: Negative Social History Social History: Negative ROS Dictation Unable to complete a thorough review of systems as patient only speaks Welsh. Talking to the son the patient has been asymptomatic no upper respiratory tract infections no nausea no vomiting no diarrhea. Physical Exam General Appearance: (+) no apparent distress Orientation: (+) alert Head/Face Trauma: No Eye: bilateral eye normal inspection, bilateral eye PERRL, bilateral eye EOMI Ear, Nose, Throat: (+) hearing grossly normal, (+) normal ENT inspection, (+) moist mucous membraine Neck: (+) normal inspection, (+) supple, (+) full range of motion, (+) no JVD Respiratory: (+) chest non-tender, (+) lungs clear, (+) well ventilated Heart: (+) regular, (+) no gallop Vascular: (+) no edema, (+) normal peripheral pulse Gastrointestinal: (+) soft, (+) non-tender, (+) bowel sound present Extremities Comment Patient does have severe tenting of his skin all four extremities. No edema. Peripheral pulses present Results Laboratory and Microbiology Lab and Micro Result Laboratory Tests Test 01/06/25 20:06 01/06/25 20:22 01/06/25 20:50 01/06/25 20:58 White Blood Count 5.4 K/uL (4.8-10.8) Red Blood Count 3.34 MIL/uL (4.50-6.20) L Hemoglobin 9.7 g/dL (14.0-18.0) L Hematocrit 28.8 % (42-54) L Mean Corpuscular Volume 86.2 fL (79-99) Mean Corpuscular Hemoglobin 29.0 pg (27.0-33.0) Mean Corpuscular Hemoglobin Concent 33.7 g/dL (32.0-36.0) Red Cell Distribution Width 15.9 % (11.0-15.5) H Platelet Count 166 K/uL (130-400) Mean Platelet Volume 8.9 fL (7.5-10.5) Immature Granulocyte % (Auto) 0.6 % (0-1) Neutrophils (%) (Auto) 67.7 % (40.0-77.0) Lymphocytes (%) (Auto) 13.1 % (21.0-51.0) L Monocytes (%) (Auto) 12.3 % (3.0-13.0) Eosinophils (%) (Auto) 5.6 % (0.0-8.0) Basophils (%) (Auto) 0.7 % (0.0-5.0) Neutrophils # (Auto) 3.6 K/uL (1.8-7.7) Lymphocytes # (Auto) 0.7 K/uL (1.0-4.8) L Monocytes # (Auto) 0.7 K/uL (0.1-1.0) Eosinophils # (Auto) 0.30 K/uL (0.00-0.70) Basophils # (Auto) 0.04 K/uL (0.00-0.20) Absolute Immature Granulocyte (auto 0.03 K/uL (0-1) Nucleated Red Blood Cells 0.0 % (0.0-0.19) Sodium Level 139 mmol/L (136-145) Potassium Level 4.9 mmol/L (3.5-5.1) Chloride Level 105 mmol/L (101-111) Carbon Dioxide Level 28 mmol/L (21-32) Blood Urea Nitrogen 20 mg/dL (7-18) H Creatinine 1.5 mg/dL (0.5-1.3) H Glomerular Filtration Rate Calc 45 mL/min (>90) Random Glucose 283 mg/dL (70-105) H Lactic Acid Level 2.9 mmol/L (0.8-2.5) H Total Calcium 8.3 mg/dL (8.5-10.1) L Troponin I High Sensitivity 13 ng/L (4-75) B-Type Natriuretic Peptide 28 pg/mL (0-100) Procalcitonin 0.05 ng/mL (0.05-0.5) Influenza Type A Antigen Negative For Type A Influenza Type B Antigen Negative For Type B Whole Blood Glucose 246 MG/DL (70-110) H Urine Color COLORLESS (YELLOW) Urine Appearance CLEAR (CLEAR) Urine pH 6.0 (5.0-8.0) Urine Specific Fowler 1.011 (1.001-1.031) Urine Protein NEGATIVE mg/dL (NEGATIVE) Urine Glucose (UA) >=1000 mg/dL (NEGATIVE) H Urine Ketones NEGATIVE mg/dL (NEGATIVE) Urine Occult Blood NEGATIVE (NEGATIVE) Urine Nitrate NEGATIVE (NEGATIVE) Urine Bilirubin NEGATIVE mg/dL (NEGATIVE) Urine Urobilinogen 0.2 mg/dL (0.2-1.0) Urine Leukocyte Esterase NEGATIVE Fahad/uL Urine RBC 2-5 /HPF (0-1) H Urine WBC 0-1 /HPF (0-1) Urine Bacteria None /HPF (None Seen) Test 01/06/25 21:48 Lactic Acid Level 4.9 mmol/L (0.8-2.5) H MDM I reviewed the patient's past medical history and prior admissions to the hospital and the emergency room. I will wait to hear more information from the son but right now I do think that a drugs intoxication is not the cause of the patient's symptoms I will get the usual labs and give the patient an additional L of fluid. I will also get a chest x-ray a BNP and an EKG. BNP is only marginally elevated EKGs negative. Despite 2 L of fluid patient is still orthostatic. Chemistry panel is normal except for a minimally elevated cr eatinine. CBC has a normal white count. Lactate on admission was 2.9 lactate 2 hours later was four. I have discussed the patient with the hospitalists they will admit the patient to their service they will give him a prophylactic antibiotics. Given the patient's glucose of 253 I have sent for a blood gas and also a beta hydroxybutyrate. ED Course Orders Procedure Category Date Status Time 12 Lead Ekg Tracing- EKG 01/06/25 Logged Technical 19:44 Cbc With Differential LAB 01/06/25 Complete 19:44 Basic Metabolic Panel LAB 01/06/25 Complete 19:44 B-Type Natriuretic LAB 01/06/25 Complete Peptide 20:11 Influenza Type A & B, LAB 01/06/25 Complete Rapid 20:11 Lactic Acid LAB 01/06/25 Complete 20:11 Procalcitonin LAB 01/06/25 Complete 20:11 Troponin I High LAB 01/06/25 Complete Sensitivity 20:11 Urinalysis Profile LAB 01/06/25 Complete 20:11 Lactated Ringers PHA 01/06/25 Complete 1000ml (Lactated 20:11 Chest 1vw RAD 01/06/25 Resulted 20:11 Lactic Acid LAB 01/06/25 Complete 22:00 Orthostatic Vital CPOE 01/06/25 Transmitted Signs 21:50 Arterial Blood Gas RT 01/06/25 Transmitted 22:06 Beta-Hydroxy Butyrate LAB 01/06/25 Logged 22:06 Ct Abdomen/Pelvis W/O CT 01/06/25 Logged Contrast 22:10 Current Medications Medications (Trade) Dose Ordered Sig/Juan Jose Route PRN Reason Start Time Stop Time Status Last Admin Dose Admin Lactated Ringer's (Lactated Ringers 1000ml) 1,000 ml BOLUS STAT IV 01/06/25 20:11 01/06/25 20:14 DC 01/06/25 21:22 Vital Signs Date Time Temp Pulse Resp B/P (MAP) Pulse Ox O2 Delivery O2 Flow Rate FiO2 01/06/25 21:47 98.8 86 18 150/80 98 Room Air* 0 21 01/06/25 19:45 98.2 104 18 155/79 97 Room Air* 0 21 01/06/25 19:23 100.4 103 16 155/76 98 Room Air 0 DX & DISP Disposition: Inpatient Departure Impression: Primary Impression: Hyperglycemia due to type 2 diabetes mellitus Additional Impressions: Dizziness, Weakness, Acute dehydration Condition: Stable Referrals: ALKA SHEEHAN MD (PCP) CLARISSE TERAN MD January 06, 2025 20:10
--- NOTE | 2025-01-06 20:13 | NUR ---
1L NS BOLUS GIVEN BY EMS
[2025-01-06 20:14] LABS: BASOPHILS # (AUTO) 0.04 K/uL (0.00-0.20); BASOPHILS % (AUTO) 0.7 % (0.0-5.0); EOSINOPHILS % (AUTO) 5.6 % (0.0-8.0); HEMATOCRIT 28.8 % (42-54); IMMATURE GRANULOCYTE ABSOLUTE 0.03 K/uL (0-1); LYMPHOCYTES # (AUTO) 0.7 K/uL (1.0-4.8); LYMPHOCYTES % (AUTO) 13.1 % (21.0-51.0); MEAN CORPUSCULAR HGB CONC 33.7 g/dL (32.0-36.0); MEAN CORPUSCULAR VOLUME 86.2 fL (79-99); MONOCYTES # (AUTO) 0.7 K/uL (0.1-1.0); MONOCYTES % (AUTO) 12.3 % (3.0-13.0); NEUTROPHILS # (AUTO) 3.6 K/uL (1.8-7.7); NEUTROPHILS % (AUTO) 67.7 % (40.0-77.0); PLATELET COUNT (AUTO) 166 K/uL (130-400); RED BLOOD CELL COUNT(AUTO) 3.34 MIL/uL (4.50-6.20); RED CELL DISTRIBUTION WIDTH 15.9 % (11.0-15.5); WHITE BLOOD COUNT (AUTO) 5.4 K/uL (4.8-10.8)
[2025-01-06 20:20] LABS: CREATININE 1.5 mg/dL (0.5-1.3); POTASSIUM 4.9 mmol/L (3.5-5.1)
[2025-01-06 20:46] LABS: INFLUENZA TYPE A Negative For Type A (NEGATIVE); INFLUENZA TYPE B Negative For Type B (NEGATIVE)
[2025-01-06 21:18] LABS: ADD UA MICROSCOPIC YES; APPEARANCE,URINE CLEAR (CLEAR); BILIRUBIN,URINE NEGATIVE (NEGATIVE); COLOR,URINE COLORLESS (YELLOW); GLUCOSE, URINE (UA) >=1000 mg/dL (NEGATIVE); KETONES,URINE NEGATIVE (NEGATIVE); LEUKOCYTE ESTERASE ,URINE NEGATIVE Leu/uL (NEGATIVE); NITRATE,URINE NEGATIVE (NEGATIVE); OCCULT BLOOD,URINE NEGATIVE (NEGATIVE); PROTEIN,URINE NEGATIVE (NEGATIVE); UROBILINOGEN,URINE 0.2 mg/dL (0.2-1.0)
[2025-01-06 21:21] LABS: WBC,URINE 0-1 /HPF (0-1)
[2025-01-06] MEDS: LACTATED RINGERS 1000ML IV STA (21:22)
--- NOTE | 2025-01-06 21:29 | HMCIMG ---
PORTABLE CHEST RADIOGRAPH INDICATION: CHF, syncope COMPARISON: None FINDINGS: quality assurance monitor leads overlie the field of view. Heart size is normal. Mild calcific plaque is present along the aortic arch hinojosa. The pulmonary vascularity and espinoza appear normal. No abnormal pulmonary parenchymal opacity or consolidation identified. No significant pleural effusion noted. No pneumothorax detected. IMPRESSION: No radiographic evidence for any acute cardiopulmonary process.
--- NOTE | 2025-01-06 22:37 | HP ---
[facility] HISTORY & PHYSICAL Date Patient Seen: January 07, 2025 Time of Visit: 0015 Supervising Physician: [Dr. Lynnette Vasquez ] Primary Care Physician: [Dr. 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 Per ED notes: "The patient is a 84-year-old male patient with a medical history that includes type 1 diabetes mellitus, benign prostatic hyperplasia, and autoimmune pancreatitis presented to the emergency department following a syncopal episode earlier today. Patient is an 84-year-old male who was at home when he suddenly sat down and then slumped over and was nonresponsive. EMS was called they noted that his pupils were pinpoint and gave him 2 doses of Narcan and he perked right up. Patient was also given a L of fluid on the way to the hospital and he is currently awake and alert, still with pinpoint pupils. Patient was admitted to the hospital in September of this year with the exact same complaints and the workup was negative. Patient's past medical history does include an ammonia and hip arthroplasty and a cholecystostomy tube. His only known medication is Ambien right now. The patient does not speak Canadian and I am in the process of trying to sort out patient's past medical history and also what medication she could have taken today through the family. Son is at the bedside calling family members. Son tells me the patient has a been admitted a couple times to this hospital before and one time he had fluid in his lungs/pneumonia". "] PAST MEDICAL HX: see above PAST SURGICAL HX: noncontributory SOCIAL HISTORY: No tobacco, ETOH, or illicit drug use Coded Allergies: No Known Drug Allergies (Verified Allergy, Unknown, 09/20/23) methylprednisolone (Verified Allergy, Unknown, 09/20/23) REVIEW OF SYSTEMS: Unable to perform 12 point ROS due to dementia. PHYSICAL EXAM: GENERAL: alert, weak, awake, follows commands, calm HEENT: EOMI, Sclera non icteric, moist mucosa NECK: Supple, no JVD, trachea midline LUNGS: Clear breath sounds bilaterally. No wheezes HEART: Regular rate and rhythm. Normal S1 and S2, without murmurs ABD: Abdomen soft, nontender. Bowel sounds present EXT: No clubbing cyanosis or edema NEURO: Alert and oriented to self, follows commands Vital Signs (last 8hr) Date Time Temp Pulse Resp B/P (MAP) Pulse Ox O2 Delivery O2 Flow Rate FiO2 01/06/25 21:47 98.8 86 18 150/80 98 Room Air* 0 21 01/06/25 19:45 98.2 104 18 155/79 97 Room Air* 0 01/06/25 19:23 100.4 103 16 155/76 98 Room Air 0 LABS: Hematology Labs: Test 01/06/25 20:06 Range/Units White Blood Count 5.4 4.8-10.8 K/uL Red Blood Count 3.34 L 4.50-6.20 MIL/uL Hemoglobin 9.7 L 14.0-18.0 g/dL Hematocrit 28.8 L 42-54 % Mean Corpuscular Volume 86.2 79-99 fL Mean Corpuscular Hemoglobin 29.0 27.0-33.0 pg Mean Corpuscular Hemoglobin Concent 33.7 32.0-36.0 g/dL Red Cell Distribution Width 15.9 H 11.0-15.5 % Platelet Count 166 130-400 K/uL Mean Platelet Volume 8.9 7.5-10.5 fL Immature Granulocyte % (Auto) 0.6 0-1 % Neutrophils (%) (Auto) 67.7 40.0-77.0 % Lymphocytes (%) (Auto) 13.1 L 21.0-51.0 % Monocytes (%) (Auto) 12.3 3.0-13.0 % Eosinophils (%) (Auto) 5.6 0.0-8.0 % Basophils (%) (Auto) 0.7 0.0-5.0 % Neutrophils # (Auto) 3.6 1.8-7.7 K/uL Lymphocytes # (Auto) 0.7 L 1.0-4.8 K/uL Monocytes # (Auto) 0.7 0.1-1.0 K/uL Eosinophils # (Auto) 0.30 0.00-0.70 K/uL Basophils # (Auto) 0.04 0.00-0.20 K/uL Absolute Immature Granulocyte (auto 0.03 0-1 K/uL Nucleated Red Blood Cells 0.0 0.0-0.19 % Chemistry Labs: Test 01/06/25 21:48 01/06/25 20:50 01/06/25 20:06 Range/Units Lactic Acid Level 4.9 H 0.8-2.5 mmol/L Whole Blood Glucose 246 H 70-110 MG/DL Sodium Level 139 136-145 mmol/L Potassium Level 4.9 3.5-5.1 mmol/L Chloride Level 105 101-111 mmol/L Carbon Dioxide Level 28 21-32 mmol/L Blood Urea Nitrogen 20 H 7-18 mg/dL Creatinine 1.5 H 0.5-1.3 mg/dL Glomerular Filtration Rate Calc 45 >90 mL/min Random Glucose 283 H 70-105 mg/dL Total Calcium 8.3 L 8.5-10.1 mg/dL Troponin I High Sensitivity 13 4-75 ng/L B-Type Natriuretic Peptide 28 0-100 pg/mL Procalcitonin 0.05 0.05-0.5 ng/mL DIAGNOSTICS / RADIOLOGY RESULTS: [ ] PLAN NEURO: Minimize central acting medications as possible. Maintain fall precautions, adequate lighting during the day PULMONARY: Supplemental 02 as needed. Maintain aspiration precautions at all times CARDIOVASCULAR: Follow hemodynamics. Vital signs per facility protocol GI & NUTRITION: Continue with nutritional support. Continue stool softeners and laxatives as needed. KIDNEYS & ELECTROLYTES: Strict monitoring of intake, output and overall fluid balance. Avoid nephrotoxic medications to the extent possible. Medications to be dosed according to renal function. Monitor electrolytes and replace as needed ENDOCRINE: Maintain blood glucose between 100-180 at all times. Hypoglycemia protocol in place INFECTIOUS DISEASE: Trend temperature, WBC and procalcitonin level Follow cultures, deescalate antibiotics as soon as possible. Panculture if new onset fever ONCOLOGY/HEMATOLOGY/COAGULATION: Monitor for s/s of bleeding Monitor hemoglobin, coagulation studies as needed SKIN: Pressure ulcer prevention per facility protocol Specialty mattress ORTHO/REHAB: Continue PT/OT Prophylaxis: Continue GI and DVT prophylaxis Code Status: Full Resuscitation Disposition: TBD Other: Total patient care time: 35 minutes SCOOTER CAVAZOS January 06, 2025 22:37
[2025-01-06 22:45] LABS: ABG HCO3 21.9 mmol/L (21.0-28.0); ABG OXYGEN SATURATION 95.7 % (94.0-98.0); ABG PCO2 32 mmHg (35-48); ABG PH 7.455 (7.350-7.450); DEVICE COMMENT RR RN; PO2, ARTERIAL BG 73.9 mmHg (83.0-108.0); VENT MODE, BG RA (ROOM AIR)
[2025-01-06] MEDS ORDERED: hydrALAZine 20MG/ML VIAL IV PRN (23:00)
[2025-01-06] MEDS ORDERED: GLUCAGON 1MG KIT 1 MG ML IM PRN (23:00)
[2025-01-06] MEDS ORDERED: DEXTROSE 50%-WATER 50 ML DISP.SYRIN IV PRN (23:00)
[2025-01-06] MEDS: INSULIN humuLIN R 100 UNIT/ML 3ML SQ SCH (23:00)
[2025-01-06] MEDS ORDERED: PoTASSium chloRIDE 20MEQ ER 20 MEQ ERTAB PO PRN (23:00)
[2025-01-06] MEDS ORDERED: acetaMINOPHEN 325 MG TAB PO PRN (23:00)
[2025-01-06] MEDS ORDERED: PoTASSium chl 10% ELIXIR 20MEQ 20 MEQ/15 ML UDCUP PO PRN (23:00)
[2025-01-06] MEDS ORDERED: cloNIDine HCL 0.1 MG TABLET PO PRN (23:00)
[2025-01-06] MEDS ORDERED: LAbetaLOL 20MG SYG IV PRN (23:00)
[2025-01-06] MEDS ORDERED: ondanSETRON 4MG INJ IVP PRN (23:00)
[2025-01-06] MEDS ORDERED: LACTULOSE 20 GM/30 ML UDCUP PO PRN (23:00)
[2025-01-06] MEDS: ZOSYN 3.375GM +NS 50ML IV SCH (23:04)
[2025-01-06] MEDS: LACTATED RINGERS 1000ML 1,000 ML IV SCH (23:05)
[2025-01-06 23:14] LABS: AMMONIA < 10 umol/L (11-32); AMYLASE 112 U/L (25-115); CREATINE KINASE, TOTAL 110 U/L (21-232)
--- NOTE | 2025-01-06 23:15 | HMCIMG ---
CT ABDOMEN/PELVIS W/O CONTRAST HISTORY: Lactic acidosis COMPARISON: 09/20/2023 TECHNIQUE: Multiple sequential axial images of the abdomen and pelvis were obtained from the dome of the diaphragm through symphysis pubis. Patient was not given contrast through intravenous route. Oral contrast was not given. FINDINGS: No pleural effusion is seen bilaterally. There is no evidence of parenchymal disease or pulmonary nodule of the visualized lower lungs. Degenerative changes of the thoracolumbar spine are present. The heart is not enlarged. There is intrahepatic biliary air. Gallbladder is not seen. The liver, spleen, adrenal glands and pancreas are unremarkable. There is no evidence of hydronephrosis bilaterally. 2 mm right lower pole renal pelvis stone is seen. There are bilateral perinephric fat stranding. If there is clinical suspicion for pyelonephritis, urinalysis correlation is helpful. Fecal material is seen in the colon. There are normal size retroperitoneal and mesenteric lymph nodes. No ascites is seen. Atherosclerotic changes are present. There is large right common iliac artery aneurysm measuring 2.4 cm. Pelvic sidewalls are symmetric bilaterally. Bladder is well distended without wall thickening. IMPRESSION: 1. Intrahepatic biliary air. 2. Tiny bilateral lower pole renal pelvis stone without hydronephrosis. There are bilateral perinephric fat stranding. If there is clinical suspicion for pyelonephritis, urinalysis correlation is helpful. 3. Right common iliac artery aneurysm measuring 2.[address] was performed with one or more following dose reduction techniques: automated exposure control, adjustment of the mA and kv according to patient's size, or use of a iterative reconstruction technique.
[2025-01-06 23:22] LABS: AMPHET/METH SCREEN,URINE NEGATIVE (NEGATIVE); BARBITURATE SCREEN, URINE NEGATIVE (NEGATIVE); BENZODIAZEPINES SCREEN,URINE NEGATIVE (NEGATIVE); CANNABINOID SCREEN,URINE NEGATIVE (NEGATIVE); COCAINE SCREEN,URINE NEGATIVE (NEGATIVE); OPIATE SCREEN,URINE NEGATIVE (NEGATIVE); PHENCYCLIDINE SCREEN,URINE NEGATIVE (NEGATIVE)
[2025-01-07] VITALS (10 sets, daily range): BP systolic 140–161; BP diastolic 60–86; PULSE 73–96; RESP 16–18; TEMP 97.7–98.5; O2SAT 95–100
--- NOTE | 2025-01-07 00:18 | NUR ---
REPORT GIVEN TO HERMINIA ESCOBAR
[2025-01-07 03:47] LABS: BASOPHILS # (AUTO) 0.04 K/uL (0.00-0.20); BASOPHILS % (AUTO) 0.8 % (0.0-5.0); EOSINOPHILS # (AUTO) 0.34 K/uL (0.00-0.70); EOSINOPHILS % (AUTO) 7.2 % (0.0-8.0); HEMATOCRIT 27.7 % (42-54); IMMATURE GRANULOCYTE ABSOLUTE 0.02 K/uL (0-1); LYMPHOCYTES # (AUTO) 1.1 K/uL (1.0-4.8); LYMPHOCYTES % (AUTO) 22.3 % (21.0-51.0); MEAN CORPUSCULAR HEMOGLOBIN 29.1 pg (27.0-33.0); MEAN CORPUSCULAR HGB CONC 34.3 g/dL (32.0-36.0); MONOCYTES # (AUTO) 0.6 K/uL (0.1-1.0); MONOCYTES % (AUTO) 12.2 % (3.0-13.0); NEUTROPHILS # (AUTO) 2.7 K/uL (1.8-7.7); NEUTROPHILS % (AUTO) 57.1 % (40.0-77.0); PLATELET COUNT (AUTO) 176 K/uL (130-400); RED BLOOD CELL COUNT(AUTO) 3.26 MIL/uL (4.50-6.20); RED CELL DISTRIBUTION WIDTH 15.8 % (11.0-15.5); WHITE BLOOD COUNT (AUTO) 4.8 K/uL (4.8-10.8)
[2025-01-07 03:58] LABS: INR 1.03 (0.85-1.15); PROTHROMBIN TIME 10.9 SEC (9.6-11.6)
[2025-01-07 04:10] LABS: % IRON SATURATION 14.2 % (30-44)
[2025-01-07 04:12] LABS: CREATININE 1.3 mg/dL (0.5-1.3); MAGNESIUM 1.6 mg/dL (1.80-2.40); PHOSPHORUS 3.5 mg/dL (2.5-4.9); POTASSIUM 4.2 mmol/L (3.5-5.1); THYROID STIMULATING HORMONE 1.01 uIU/mL (0.36-3.74)
--- NOTE | 2025-01-07 06:52 | EKG ---
[facility] Test Date: 2025-01-06 Test Time: 20:07:23 Pat Name: CARROL PERKINS Department: [facility] Room: 428 1 Gender: M [employer] Developer: [id number] : [id number] Requested By: CLARISSE TERAN Order Number: [id number] Reading MD: Camilla Adkins Measurements Intervals [place] Rate: 99 P: 55 [place]: 159 QRS: -39 QRSD: 87 T: 69 QT: 354 QTc: 454 Interpretive Statements Sinus rhythm Left axis deviation Compared to ECG 09/28/2024 08:20:14 No significant changes Electronically Signed On 01-07-2025 14:47:24 CDT by Camilla Adkins Please click the below link to view image of tracing.
[2025-01-07] MEDS: PANTOPrazole 40 MG TAB DR PO SCH (08:57)
[2025-01-07] MEDS: MAGNESIUM 2GM PREMIX 50ML 50 ML IV PRN (08:57)
--- NOTE | 2025-01-07 10:38 | HMCIMG ---
US CAROTID DUPLEX HISTORY: Syncope COMPARISON: None TECHNIQUE: Duplex carotid arterial Doppler ultrasound study was performed. FINDINGS: The common, internal and external carotid arteries are visualized. The peak systolic velocities of right common carotid artery is 70 centimeters per second, right internal carotid artery is 125 centimeters per second, right external carotid artery is 96 centimeters per second, and right vertebral artery is 59 centimeters per second. Right internal carotid artery to right common carotid artery ratio is 1.8. Right vertebral artery is seen with antegrade flow. The peak systolic velocities of left common carotid artery is 108 centimeters per second, left internal carotid artery is 100 centimeters per second, left external carotid artery is 197 centimeters per second, and left vertebral artery is 90 centimeters per second. Left internal carotid artery to left common carotid artery ratio is 1.0. Left vertebral artery is seen with antegrade flow. There are bilateral echogenic plaques. IMPRESSION: 1. There is mild left external carotid artery stenosis. No other hemodynamically significant lesion is seen of either extracranial carotid artery system.
--- NOTE | 2025-01-07 13:26 | NUR ---
DCP: HOME SW made contact with son Johny Carroll [phone]. Pt currently lives with , and 2 sons Johny Carroll [phone] and Dejuan Carroll [phone]. Pt has a w/c, cane, and walker the he uses at home. Pt has a provider that goes 28 hrs a week and assists with bathing, meals, and housekeeping. PCP is Dr. Sandro Gillette. At DC pt will return home and family can assist with transportation. Addendum: 01/07/25 at 1337 by FIDEL RICHARDS SS Amended: Links added.
--- NOTE | 2025-01-07 14:30 | HMCSR ---
APPROVED REPORT EXAM: Two-dimensional and M-mode echocardiogram with Doppler and color Doppler. INDICATION ICD: Syncope 2D Dimensions RVDd3.0 cmLVEF(%)64.7 (>50%)LVED Vol(simp.)47.0 mL IVSd0.8 (0.7-1.1cm)FS(%)35 %LVES Vol(simp.)27.0 mL LVDd3.6 (3.8-5.6cm)LA (2D)2.9 (1.6-4.0cm)LVEF(%, simp.)58 % PWd1.0 (0.7-1.1cm)Ao Root(2D)2.1 (2.0-3.7cm)LA ESV INDEX (BP)17.33 mL/m2 LVDs2.4 (2.5-4.0cm)LVOT diam2.1 (1.8-2.4cm) IVC diam0.9 cm M-Mode Dimensions EPSS0.8 cm LA (MM)3.2 (1.6-4.0cm) Ao Root(MM)3.1 (2.0-3.7cm) Aortic Valve AoV Vmax0.8 m/Radha Peak GR2.4 mmHgLVOT Vmax0.7 m/s AoV VTI0.2 mAo Mean GR1.3 mmHgLVOT VTI0.13 m MARKUS (VMAX)3.27 cm2AVA (VTI) 2.8 cm2 Mitral Valve MV E Vmax63.7 cm/sDECEL Toep250 ms MV A Vmax83.8 cm/sP 1/2 T79 ms E/A ratio0.8MVA (PHT)2.8 cm2 TDI E/E' Bewrwy23.4E/E' Qxupvuy23.4 Medial E' Peak V4.74 cm/sLateral E' Peak V6.14 cm/s Pulmonary Valve PV Vmax1.1 m/sPV VTI0.23 mPV Mean GR2.6 mmHg PV Peak GR4.5 mmHg Left Ventricle The left ventricle is normal size. There is normal LV segmental wall motion. There is normal left charles tricular wall thickness. LVEF is 55-60%. The left ventricular diastolic function is normal. Right Ventricle The right ventricle is normal size. The right ventricular systolic function is normal. Atria The left atrium size is normal. The right atrium size is normal. Aortic Valve The aortic valve is trileflet and sclerotic however no stenosis. No aortic regurgitation is present. There is no aortic valvular stenosis. Mitral Valve The mitral valve is normal in structure. There is trace mitral valve regurgitation noted. There is no mitral valve stenosis. Tricuspid Valve The tricuspid valve is normal in structure. There is no tricuspid valve regurgitation noted. Pulmonic Valve Pulmonic valve is not well visualized. There is no pulmonic valvular regurgitation. Great Vessels The aortic root is normal in size. The IVC is normal in size and collapses >50% with inspiration. Pericardium There is no pericardial effusion. Other Information Quality : Fair Technically limited study due to body habitus. Conclusion LVEF is 55-60%. The left ventricular diastolic function is normal. Trace mitral valve regurgitation. Aortic valve sclerosis without stenosis.
--- NOTE | 2025-01-07 16:35 | NUR ---
MRI Son able to complete MRI form for patient. industrial engineering technician updated.
--- NOTE | 2025-01-07 16:46 | PN ---
[facility] PROGRESS NOTE Date Patient Seen: January 07, 2025 Time of Visit: 1240 Supervising Physician: Dr. Matos Primary Care Physician: [Dr. 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 Patient is awake however remains pleasantly confused likely secondary to his dementia. Patient has remained hemodynamically stable. Patient's carotid ultrasound showed mild left external carotid artery stenosis. Patient currently pending MRI of the brain. Patient currently pending echocardiogram. The patient to continue on IV Zosyn. Patient currently pending PT and OT evaluation. Patient's labs this a.m. unremarkable. We will continue to monitor patient closely REVIEW OF SYSTEMS: Unable to perform 12 point ROS due to dementia. PHYSICAL EXAM: GENERAL: alert, weak, awake, follows commands, calm HEENT: EOMI, Sclera non icteric, moist mucosa NECK: Supple, no JVD, trachea midline LUNGS: Clear breath sounds bilaterally. No wheezes HEART: Regular rate and rhythm. Normal S1 and S2, without murmurs ABD: Abdomen soft, nontender. Bowel sounds present EXT: No clubbing cyanosis or edema NEURO: Alert and oriented to self, follows commands Vital Signs (last 8hr) Date Time Temp Pulse Resp B/P (MAP) Pulse Ox O2 Delivery O2 Flow Rate FiO2 01/07/25 12:00 97.9 73 16 161/86 100 Room Air 21 01/07/25 08:57 100 Room Air* 0 21 LABS: Hematology Labs: Test 01/07/25 03:19 Range/Units White Blood Count 4.8 4.8-10.8 K/uL Red Blood Count 3.26 L 4.50-6.20 MIL/uL Hemoglobin 9.5 L 14.0-18.0 g/dL Hematocrit 27.7 L 42-54 % Mean Corpuscular Volume 85.0 79-99 fL Mean Corpuscular Hemoglobin 29.1 27.0-33.0 pg Mean Corpuscular Hemoglobin Concent 34.3 32.0-36.0 g/dL Red Cell Distribution Width 15.8 H 11.0-15.5 % Platelet Count 176 130-400 K/uL Mean Platelet Volume 9.2 7.5-10.5 fL Immature Granulocyte % (Auto) 0.4 0-1 % Neutrophils (%) (Auto) 57.1 40.0-77.0 % Lymphocytes (%) (Auto) 22.3 21.0-51.0 % Monocytes (%) (Auto) 12.2 3.0-13.0 % Eosinophils (%) (Auto) 7.2 0.0-8.0 % Basophils (%) (Auto) 0.8 0.0-5.0 % Neutrophils # (Auto) 2.7 1.8-7.7 K/uL Lymphocytes # (Auto) 1.1 1.0-4.8 K/uL Monocytes # (Auto) 0.6 0.1-1.0 K/uL Eosinophils # (Auto) 0.34 0.00-0.70 K/uL Basophils # (Auto) 0.04 0.00-0.20 K/uL Absolute Immature Granulocyte (auto 0.02 0-1 K/uL Nucleated Red Blood Cells 0.0 0.0-0.19 % Chemistry Labs: Test 01/07/25 11:53 01/07/25 03:19 01/06/25 22:50 01/06/25 20:06 Range/Units Whole Blood Glucose 104 70-110 MG/DL Bedside Glucose Comment Notified Nurse Sodium Level 141 136-145 mmol/L Potassium Level 4.2 3.5-5.1 mmol/L Chloride Level 106 101-111 mmol/L Carbon Dioxide Level 29 21-32 mmol/L Blood Urea Nitrogen 16 7-18 mg/dL Creatinine 1.3 0.5-1.3 mg/dL Glomerular Filtration Rate Calc 54 >90 mL/min Random Glucose 106 #H 70-105 mg/dL Total Calcium 8.3 L 8.5-10.1 mg/dL Ionized Calcium 1.12 L 1.15-1.33 MMOL/L Phosphorus Level 3.5 2.5-4.9 mg/dL Magnesium Level 1.60 L 1.80-2.40 mg/dL Iron Level 24 L 65-175 mcg/dL Total Iron Binding Capacity 168 L 250-450 mcg/dL Percent Iron Saturation 14.2 L 30-44 % Lactate Dehydrogenase 166 81-234 U/L Triglycerides Level 113 30-200 mg/dL Cholesterol Level 121 # <200 mg/dL LDL Cholesterol 71 0-99 mg/dL HDL Cholesterol 32 29-71 mg/dL Thyroid Stimulating Hormone (TSH) 1.01 0.36-3.74 uIU/mL Lactic Acid Level 1.7 0.8-2.5 mmol/L Ammonia < 10 L 11-32 umol/L Total Creatine Kinase 110 # 21-232 U/L Amylase Level 112 25-115 U/L Troponin I High Sensitivity 13 4-75 ng/L B-Type Natriuretic Peptide 28 0-100 pg/mL Procalcitonin 0.05 0.05-0.5 ng/mL Coagulation Labs: Test 01/07/25 03:19 Range/Units Prothrombin Time 10.9 9.6-11.6 SEC Prothromb Time International Ratio 1.03 0.85-1.15 DIAGNOSTICS / RADIOLOGY RESULTS: na PLAN NEURO: Minimize central acting medications as possible. Maintain fall precautions, adequate lighting during the day PULMONARY: Supplemental 02 as needed. Maintain aspiration precautions at all times CARDIOVASCULAR: Follow hemodynamics. Vital signs per facility protocol GI & NUTRITION: Continue with nutritional support. Continue stool softeners and laxatives as needed. KIDNEYS & ELECTROLYTES: Strict monitoring of intake, output and overall fluid balance. Avoid nephrotoxic medications to the extent possible. Medications to be dosed according to renal function. Monitor electrolytes and replace as needed ENDOCRINE: Maintain blood glucose between 100-180 at all times. Hypoglycemia protocol in place INFECTIOUS DISEASE: Trend temperature, WBC and procalcitonin level Follow cultures, deescalate antibiotics as soon as possible. Panculture if new onset fever ONCOLOGY/HEMATOLOGY/COAGULATION: Monitor for s/s of bleeding Monitor hemoglobin, coagulation studies as needed SKIN: Pressure ulcer prevention per facility protocol Specialty mattress ORTHO/REHAB: Continue PT/OT Prophylaxis: Continue GI and DVT prophylaxis Code Status: Full Resuscitation Disposition: TBD Other: Case discussed with supervising physician plan of care agreed upon CALI SHOEMAKERP January 07, 2025 16:46
--- NOTE | 2025-01-07 17:24 | HMCIMG ---
MRI BRAIN WITHOUT CONTRAST INDICATION: Recurrent syncope COMPARISON: None. TECHNIQUE: Noncontrast multisequence multiplanar imaging of the brain. FINDINGS: Scattered subcortical and coalescent periventricular white matter foci with high T2 and FLAIR signal do not correspond to any diffusion weighted abnormality, and likely represent residual of chronic small vessel arteriopathy and/or remote vascular insult. Generalized mild to moderate cerebral cortical atrophy. No evidence for acute ischemia, hemorrhage or mass lesion. No hydrocephalus or extra-axial fluid collection identified. The pituitary, cavernous sinus, hypothalamic and pineal regions appear normal. The cranial-cervical junction, atlanto-dens interval and position of the cerebellar tonsils are within normal limits. Cranial nerve VII/VIII complexes appear normal without evidence for gross intracanalicular or cerebellar-pontine angle lesion. Trace fluid scattered throughout the right mastoid air cells inferiorly, and coalescent high T2 signal throughout the left mastoid air cells. Mild left maxillary sinus mucosal thickening and mild bilateral ethmoid and left sphenoid sinus mucosal thickening. Calvarium appears normal. IMPRESSION: Chronic white matter ischemic changes and mild to moderate brain atrophy without superimposed acute component. Acute mild inferior right mastoiditis, chronic mild paranasal sinus disease, and chronic left mastoid airspace disease.
[2025-01-07] MEDS: doNEPEZil HCL 5 MG TAB PO SCH (20:40)
[2025-01-07] MEDS: TERAZOSIN 5MG CAP PO SCH (20:40)
[2025-01-07] MEDS: AMYLASE PO SCH (21:00)
[2025-01-07] MEDS: PROTEASE PO SCH (21:00)
[2025-01-07] MEDS: LIPASE PO SCH (21:00)
[2025-01-08 03:57] VITALS: BP 119/58; PULSE 88; RESP 16; TEMP 98.6
[2025-01-08 08:00] VITALS: BP 119/66; PULSE 73; RESP 16; TEMP 98.1
[2025-01-08 08:26] VITALS: O2SAT 97
[2025-01-08 12:00] VITALS: BP 119/65; PULSE 89; RESP 16; TEMP 97.5
[2025-01-08 16:00] VITALS: BP 129/80; PULSE 78; RESP 16; TEMP 98
--- NOTE | 2025-01-08 17:06 | DS ---
[facility] DISCHARGE SUMMARY Date Patient Seen: January 08, 2025 Time of Visit: 1240 Supervising Physician: Dr. Maloney Primary Care Physician: [Dr. 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 Per ED notes: "The patient is a 84-year-old male patient with a medical history that includes type 1 diabetes mellitus, benign prostatic hyperplasia, and autoimmune pancreatitis presented to the emergency department following a syncopal episode earlier today. Patient is an 84-year-old male who was at home when he suddenly sat down and then slumped over and was nonresponsive. EMS was called they noted that his pupils were pinpoint and gave him 2 doses of Narcan and he perked right up. Patient was also given a L of fluid on the way to the hospital and he is currently awake and alert, still with pinpoint pupils. Patient was admitted to the hospital in September of this year with the exact same complaints and the workup was negative. Patient's past medical history does include an ammonia and hip arthroplasty and a cholecystostomy tube. His only known medication is Ambien right now. The patient does not speak Bulgarian and I am in the process of trying to sort out patient's past medical history and also what medication she could have taken today through the family. Son is at the bedside calling family members. Son tells me the patient has a been admitted a couple times to this hospital before and one time he had fluid in his lungs/pneumonia". "] Patient was seen and examined by bedside with son present. As per son patient is at baseline. Patient is alert to self however still pleasantly confused due to dementia. Patient's MRI completed showed acute mastoiditis, but unremarkable for CVA. Patient has not had any reoccurrence syncope episodes. Patient states is feeling fine. Patient has remained hemodynamically stable. Tolerating p.o. diet having bowel movements. Instructed son and patient at patient will be getting discharged today and will need to follow up with PCP within 3-5 days upon discharge. Also instructed we will be getting discharged on oral at antibiotics to complete treatment for acute mastoiditis. Son voices u nderstanding and agrees with plan has no questions at this time The patient was treated for the following problems: ACTIVE PROBLEM LIST FOR THE HOSPITALIZATION: CHRONIC PROBLEMS: continue previous management per PCP unless otherwise indicated HE[employer] TECHNICIAN FINDINGS/RECOMMENDATIONS: [ ] PROCEDURES: as mentioned above DISCHARGE MEDICATIONS: Augmentin 875 p.o. b.i.d. x8 days Pt hemodynamically stable and afebrile at time of discharge. PCP notified of patients admission, hospital course and discharge. Continued Medications: Amylase/Lipase/Protease (Creon 12,000) 1 Cap Drcap 1 CAP PO TID, CAP Donepezil HCl (Donepezil HCl) 5 Mg Tablet 5 MG PO HS, TAB Ergocalciferol (Vitamin D2) (Vitamin D2) 1,250 Mcg Capsule 1250 MCG PO QWEEK, CAP Terazosin HCl (Terazosin HCl) 5 Mg Capsule 5 MG PO HS, CAP PHYSICAL EXAM: GENERAL: alert, weak, awake, follows commands, calm HEENT: EOMI, Sclera non icteric, moist mucosa NECK: Supple, no JVD, trachea midline LUNGS: Clear breath sounds bilaterally. No wheezes HEART: Regular rate and rhythm. Normal S1 and S2, without murmurs ABD: Abdomen soft, nontender. Bowel sounds present EXT: No clubbing cyanosis or edema NEURO: Alert and oriented to self, follows commands FOLLOW-UP: Follow-up with PCP in 2-3 days RECOMMENDATIONS: See Discharge Instructions This case was seen and discussed with my supervising physician. 35 minutes spent on discharge process, including evaluation of the patient, discussion with nursing staff, medication reconciliation and follow-up appointments CALI SHOEMAKER January 08, 2025 17:06
--- NOTE | 2025-01-08 17:10 | NUR ---
Discharge Patient ready for discharge. Patient's grandson at bedside and was given discharge instructions. Family member provided patient's antibiotic prescription. Verbalize understanding and provided teachback education. IVs removed. Patient discharged home via wheelchair with grandson.
== END 2025-01-08 17:10 | disposition home or self-care (01) ==
LOC: EDH 19:16 → EDHIP 19:17 → 4DH 01-07 00:44
PROVIDERS: ADMIT Internal Medicine; ATTEND Internal Medicine
DX: H70.001 Acute mastoiditis without complications, right ear (principal); E11.65 Type 2 diabetes mellitus with hyperglycemia; N12 Tubulo-interstitial nephritis, not specified as acute or chronic; I72.3 Aneurysm of iliac artery; I10 Essential (primary) hypertension; R60.0 Localized edema; F03.90 Unspecified dementia, unspecified severity, without behavioral disturbance, psychotic disturbance, mood disturbance, and anxiety; E86.0 Dehydration; J44.9 Chronic obstructive pulmonary disease, unspecified; N42.9 Disorder of prostate, unspecified; N17.9 Acute kidney failure, unspecified; R55 Syncope and collapse; Z79.4 Long term (current) use of insulin; Z98.890 Other specified postprocedural states; Z79.899 Other long term (current) drug therapy; Z96.649 Presence of unspecified artificial hip joint; Z88.8 Allergy status to other drugs, medicaments and biological substances
CPT/HCPCS: 83605 ×3; 81001; 96365; 96366 ×5; 99285; 82150; 82550; 84484; 80048 ×2; 82803; 83880; 80305; 82140; 85025 ×2; 87040 ×2; 87804 ×2; 82948 ×10; 82010; 36415 ×2; 71045; 74176; 93880; 93005; 36600; 84145; 84443; 83540; 83550; 83615; 83735; 84100; 82330; 80061; 85610; 93306; 70551; 97161; 97116; 97530 ×2; G0378 ×40; J7120 ×2; J2543 ×5; J1815; J3475